=== PATIENT | female | born 1940 | race Caucasian/White ===

== ENCOUNTER 2016-10-16 11:41 | Inpatient (IN) | payer MEDICARE, OTHER ==
[2016-10-16] MEDS ORDERED: Nystatin Topical Powder 15 GM Bottle TOP PRN (17:34)
[2016-10-16] MEDS ORDERED: Non-Formulary Medication 1 Each (Acetaminophen [Acetaminophen Er] 650 MG) PO PRN (17:34)
[2016-10-16] MEDS: Hydrochlorothiazide/Triamterene 25-37.5 MG Cap PO SCH (19:34)
[2016-10-16] MEDS: Simvastatin 10 MG Tab PO SCH (19:35)
[2016-10-16] MEDS: Cholecalciferol (Vitamin D3) 1,000 Unit Tab PO SCH (19:35)
[2016-10-16] MEDS: ELIQUIS 5 MG PO SCH (19:36)
--- NOTE | 2016-10-17 00:46 | HP ---
HISTORY OF PRESENT ILLNESS: Tashia is a 76-year-old female who is admitted to swing bed secondary to recent status post right total knee replacement by Dr. Mike in [place] on the 12 of October. She had a known history of osteoarthritis in her knees and her back. She has been doing quite well since surgery. She states that she does have a little bit of discomfort in her knee, especially with ambulation, otherwise she does see that improving. She has not had any other postsurgical symptoms or concerns. She states otherwise she has been feeling quite well. PAST MEDICAL HISTORY: Chronic illnesses include history of breast cancer, hyperlipidemia, essential hypertension, history of adenomatous colonic polyps, history of osteoarthritis, urinary incontinence, CVA, hypertonicity of bladder, coronary artery disease, history of chronic diastolic heart failure. PAST SURGICAL HISTORY: Includes A and P repair, breast lumpectomy, colonoscopy, excision of , hysterectomy, open reduction of a fracture of the left foot, 5th metatarsal, rotator cuff anchor, tonsillectomy, and adenoidectomy. CURRENT MEDICATIONS: Include metoprolol succinate 25 mg daily; simvastatin 10 mg daily; Maxzide 37.5/25, one tablet daily; anastrozole, Arimidex 1 mg tablet, one tablet daily; aspirin 325 mg one tablet daily; acetaminophen, Tylenol Arthritis 650 mg every 8 hours as needed; calcium 600+D one tablet daily; Nystatin powder apply topically two times daily as needed for rash; multivitamin one tablet daily; Eliquis 2.5 mg b.i.d. x10 days, then will be switched to the aspirin 325 at that point in time, currently the aspirin is being held; oxycodone 5 mg 1-2 tabs every 4 hours as needed; senna/docusate one tablet p.o. b.i.d.; tramadol 50 mg two tabs p.o. p.r.n. every 6 hours as needed. ALLERGIES: NO KNOWN ALLERGIES. SOCIAL HISTORY: , mother of six. She is retired. Former smoker, quit in 1999. Alcohol use is social. No regular exercise. Does wear seat belt. FAMILY HISTORY: Reviewed. PHYSICAL EXAMINATION: VITAL SIGNS: Temp 99.4, pulse of 54, respirations 20, blood pressure 142/56 with O2 saturation 86% on 2 L. She is 91%. GENERAL: Pleasant, cooperative female. She is sleeping comfortably upon examination room. HEENT: Grossly unremarkable. LUNGS: Clear to auscultation. I did not hear any adventitious sounds. Respirations are nonlabored. CARDIAC: Regular rate and rhythm. No murmurs, gallops, or rubs are noted. ABDOMEN: Soft, morbidly obese. Bowel sounds are present and normoactive. No guarding or rigidity. EXTREMITIES: Wound dressing is noted to the right knee. There is some mild edema noted; however, no signs of any secondary cellulitis is noted. Pedal pulses are present and equal bilaterally. ASSESSMENT: STATUS POST RIGHT TOTAL KNEE REPLACEMENT. PLAN: We will admit to Dr. Fulton's service at this time. We will start her again on the Eliquis for 10 days, and at that point in time, we will switch her to aspirin 325 and discontinue the Eliquis. She is to ambulate as tolerated. We will keep her on oxygen at 2 L at sleep, 1 L at rest, and 3 L with activity. She may shower. We will get blood sugar daily as well. She is to elevate her right lower extremity as needed. I did discuss with her if she has any concerns during her stay, she is to definitely let us know; otherwise, Physical Therapy will continue to work with rehabilitation. KINA /[id number] MTDD
[2016-10-17] MEDS: oxyCODONE 5 MG Tab PO PRN ×4 (01:11→20:01)
[2016-10-17] MEDS: Hydrochlorothiazide/Triamterene 25-37.5 MG Cap PO SCH ×2 (08:08→19:44)
[2016-10-17] MEDS: Calcium Carbonate/Vitamin D3 1250 MG-200 Unit Tab PO SCH (08:08)
[2016-10-17] MEDS: ELIQUIS 5 MG PO SCH ×2 (08:11→20:37)
[2016-10-17] MEDS: Metoprolol Succinate 25 MG Tab.ER PO SCH (08:55)
[2016-10-17] MEDS ORDERED: Hydrocortisone Acetate 25 MG Supp RECTAL PRN (09:41)
[2016-10-17] MEDS: traMADol 50 MG Tab PO PRN (16:40)
[2016-10-17] MEDS: Cholecalciferol (Vitamin D3) 1,000 Unit Tab PO SCH (19:44)
[2016-10-17] MEDS: Simvastatin 10 MG Tab PO SCH (19:44)
[2016-10-17] MEDS: Nystatin Topical Powder 15 GM Bottle TOP SCH (20:37)
[2016-10-18] MEDS: oxyCODONE 5 MG Tab PO PRN ×2 (08:03→17:46)
[2016-10-18] MEDS: Hydrochlorothiazide/Triamterene 25-37.5 MG Cap PO SCH ×2 (08:03→19:28)
[2016-10-18] MEDS: Metoprolol Succinate 25 MG Tab.ER PO SCH (08:03)
[2016-10-18] MEDS: Calcium Carbonate/Vitamin D3 1250 MG-200 Unit Tab PO SCH (08:03)
[2016-10-18] MEDS: Nystatin Topical Powder 15 GM Bottle TOP SCH ×2 (08:05→19:30)
[2016-10-18] MEDS: ELIQUIS 5 MG PO SCH ×2 (08:05→19:29)
[2016-10-18] MEDS: [UNRECOGNIZED DRUG - OTHER] PO SCH (13:19)
[2016-10-18] MEDS: Acetaminophen 325 MG Tab PO PRN (19:28)
[2016-10-18] MEDS: Cholecalciferol (Vitamin D3) 1,000 Unit Tab PO SCH (19:29)
[2016-10-18] MEDS: Simvastatin 10 MG Tab PO SCH (19:29)
[2016-10-19] MEDS: Metoprolol Succinate 25 MG Tab.ER PO SCH (07:45)
[2016-10-19] MEDS: Calcium Carbonate/Vitamin D3 1250 MG-200 Unit Tab PO SCH (07:46)
[2016-10-19] MEDS: Hydrochlorothiazide/Triamterene 25-37.5 MG Cap PO SCH ×2 (07:46→20:01)
[2016-10-19] MEDS: ELIQUIS 5 MG PO SCH ×2 (07:47→20:02)
[2016-10-19] MEDS: Nystatin Topical Powder 15 GM Bottle TOP SCH ×2 (07:48→20:02)
[2016-10-19] MEDS: oxyCODONE 5 MG Tab PO PRN (10:23)
[2016-10-19] MEDS: traMADol 50 MG Tab PO PRN (14:25)
[2016-10-19] MEDS: Cholecalciferol (Vitamin D3) 1,000 Unit Tab PO SCH (20:01)
[2016-10-19] MEDS: Simvastatin 10 MG Tab PO SCH (20:02)
[2016-10-19] MEDS: Acetaminophen 325 MG Tab PO PRN (23:40)
[2016-10-20] MEDS: traMADol 50 MG Tab PO PRN (06:11)
[2016-10-20] MEDS: Nystatin Topical Powder 15 GM Bottle TOP SCH ×2 (08:00→19:50)
[2016-10-20] MEDS: Hydrochlorothiazide/Triamterene 25-37.5 MG Cap PO SCH ×2 (08:07→19:48)
[2016-10-20] MEDS: Calcium Carbonate/Vitamin D3 1250 MG-200 Unit Tab PO SCH (08:07)
[2016-10-20] MEDS: ELIQUIS 5 MG PO SCH ×2 (08:08→19:49)
[2016-10-20] MEDS: Metoprolol Succinate 25 MG Tab.ER PO SCH (10:25)
[2016-10-20] MEDS: oxyCODONE 5 MG Tab PO PRN (13:37)
[2016-10-20] MEDS: Simvastatin 10 MG Tab PO SCH (19:48)
[2016-10-20] MEDS: Cholecalciferol (Vitamin D3) 1,000 Unit Tab PO SCH (19:48)
[2016-10-21] MEDS: Metoprolol Succinate 25 MG Tab.ER PO SCH (07:54)
[2016-10-21] MEDS: Calcium Carbonate/Vitamin D3 1250 MG-200 Unit Tab PO SCH (07:54)
[2016-10-21] MEDS: Hydrochlorothiazide/Triamterene 25-37.5 MG Cap PO SCH ×2 (07:54→19:35)
[2016-10-21] MEDS: ELIQUIS 5 MG PO SCH ×2 (07:55→19:36)
[2016-10-21] MEDS: traMADol 50 MG Tab PO PRN (08:00)
[2016-10-21] MEDS: Nystatin Topical Powder 15 GM Bottle TOP SCH ×2 (09:28→19:35)
[2016-10-21] MEDS: oxyCODONE 5 MG Tab PO PRN (14:26)
[2016-10-21] MEDS: Simvastatin 10 MG Tab PO SCH (19:35)
[2016-10-21] MEDS: Cholecalciferol (Vitamin D3) 1,000 Unit Tab PO SCH (19:35)
[2016-10-22] MEDS: ELIQUIS 5 MG PO SCH ×2 (07:30→20:48)
[2016-10-22] MEDS: Metoprolol Succinate 25 MG Tab.ER PO SCH (07:30)
[2016-10-22] MEDS: Hydrochlorothiazide/Triamterene 25-37.5 MG Cap PO SCH ×2 (07:30→20:46)
[2016-10-22] MEDS: Calcium Carbonate/Vitamin D3 1250 MG-200 Unit Tab PO SCH (07:30)
[2016-10-22] MEDS: Nystatin Topical Powder 15 GM Bottle TOP SCH ×2 (09:14→20:48)
[2016-10-22] MEDS: traMADol 50 MG Tab PO PRN ×2 (09:19→20:52)
[2016-10-22 09:30] LABS: CHLORIDE,CL 103 mEq/L (98-106); SODIUM,NA 142 mEq/L (136-145)
[2016-10-22] MEDS: oxyCODONE 5 MG Tab PO PRN (14:51)
[2016-10-22] MEDS: Simvastatin 10 MG Tab PO SCH (20:47)
[2016-10-22] MEDS: Cholecalciferol (Vitamin D3) 1,000 Unit Tab PO SCH (20:47)
[2016-10-23] MEDS: Calcium Carbonate/Vitamin D3 1250 MG-200 Unit Tab PO SCH (07:33)
[2016-10-23] MEDS: Metoprolol Succinate 25 MG Tab.ER PO SCH (07:34)
[2016-10-23] MEDS: Hydrochlorothiazide/Triamterene 25-37.5 MG Cap PO SCH ×2 (07:34→19:05)
[2016-10-23] MEDS: Nystatin Topical Powder 15 GM Bottle TOP SCH ×2 (07:36→19:06)
[2016-10-23] MEDS: ELIQUIS 5 MG PO SCH ×2 (07:36→19:08)
[2016-10-23] MEDS: traMADol 50 MG Tab PO PRN ×2 (09:47→22:49)
[2016-10-23] MEDS: oxyCODONE 5 MG Tab PO PRN (13:52)
[2016-10-23] MEDS: Cholecalciferol (Vitamin D3) 1,000 Unit Tab PO SCH (19:06)
[2016-10-23] MEDS: Simvastatin 10 MG Tab PO SCH (19:07)
[2016-10-24] MEDS: oxyCODONE 5 MG Tab PO PRN (05:46)
[2016-10-24] MEDS: Calcium Carbonate/Vitamin D3 1250 MG-200 Unit Tab PO SCH (07:31)
[2016-10-24] MEDS: Nystatin Topical Powder 15 GM Bottle TOP SCH ×2 (07:32→19:36)
[2016-10-24] MEDS: Metoprolol Succinate 25 MG Tab.ER PO SCH (07:33)
[2016-10-24] MEDS: Hydrochlorothiazide/Triamterene 25-37.5 MG Cap PO SCH ×2 (07:33→19:35)
[2016-10-24] MEDS: ELIQUIS 5 MG PO SCH ×2 (07:34→19:35)
[2016-10-24] MEDS: Acetaminophen 325 MG Tab PO PRN (12:44)
[2016-10-24] MEDS: Simvastatin 10 MG Tab PO SCH (19:34)
[2016-10-24] MEDS: Cholecalciferol (Vitamin D3) 1,000 Unit Tab PO SCH (19:35)
[2016-10-24] MEDS: traMADol 50 MG Tab PO PRN (19:38)
[2016-10-25] MEDS: Acetaminophen 325 MG Tab PO PRN ×2 (00:39→10:05)
[2016-10-25] MEDS: Hydrochlorothiazide/Triamterene 25-37.5 MG Cap PO SCH ×2 (07:31→19:48)
[2016-10-25] MEDS: Aspirin 325 MG Tab.EC PO SCH (07:31)
[2016-10-25] MEDS: Calcium Carbonate/Vitamin D3 1250 MG-200 Unit Tab PO SCH (07:31)
[2016-10-25] MEDS: Metoprolol Succinate 25 MG Tab.ER PO SCH (07:32)
[2016-10-25] MEDS: Nystatin Topical Powder 15 GM Bottle TOP SCH ×2 (07:33→20:30)
[2016-10-25] MEDS: oxyCODONE 5 MG Tab PO PRN ×2 (13:57→19:49)
[2016-10-25] MEDS: Simvastatin 10 MG Tab PO SCH (19:48)
[2016-10-25] MEDS: Cholecalciferol (Vitamin D3) 1,000 Unit Tab PO SCH (19:48)
[2016-10-26] MEDS: Hydrochlorothiazide/Triamterene 25-37.5 MG Cap PO SCH ×2 (07:52→19:53)
[2016-10-26] MEDS: Metoprolol Succinate 25 MG Tab.ER PO SCH (07:52)
[2016-10-26] MEDS: Aspirin 325 MG Tab.EC PO SCH (07:52)
[2016-10-26] MEDS: Calcium Carbonate/Vitamin D3 1250 MG-200 Unit Tab PO SCH (07:52)
[2016-10-26] MEDS: Nystatin Topical Powder 15 GM Bottle TOP SCH ×2 (07:53→19:59)
[2016-10-26] MEDS: oxyCODONE 5 MG Tab PO PRN ×3 (09:05→22:41)
[2016-10-26] MEDS: Simvastatin 10 MG Tab PO SCH (19:53)
[2016-10-26] MEDS: Cholecalciferol (Vitamin D3) 1,000 Unit Tab PO SCH (19:53)
[2016-10-27 07:39] VITALS: BP 145/79
[2016-10-27] MEDS: Aspirin 325 MG Tab.EC PO SCH (07:39)
[2016-10-27] MEDS: Metoprolol Succinate 25 MG Tab.ER PO SCH (07:39)
[2016-10-27] MEDS: Hydrochlorothiazide/Triamterene 25-37.5 MG Cap PO SCH (07:39)
[2016-10-27] MEDS: Calcium Carbonate/Vitamin D3 1250 MG-200 Unit Tab PO SCH (07:39)
[2016-10-27] MEDS: Nystatin Topical Powder 15 GM Bottle TOP SCH (07:40)
[2016-10-27] MEDS: traMADol 50 MG Tab PO PRN (09:05)
--- NOTE | 2016-10-28 19:44 | PCM.DCSUM1 ---
Discharge Summary - Hospital Course Free Text/Narrative:: Patient admitted swing bed after right total knee replacement with Dr. Mike on October 12. Presented for ongoing therapy with PT. Had no surgical complications. Started on Eliquis on admit for 10 days post-op. - Discharge Data Discharge Date: 10/27/16 Discharge Disposition: Home, W Home Health Agency 06 Condition: Good - Discharge Diagnosis/Problem(s) (1) Status post total right knee replacement SNOMED Code(s): 0991004333424 ICD Code: Z96.651 - PRESENCE OF RIGHT ARTIFICIAL KNEE JOINT Status: Acute - Patient Summary/Data Complications: none Consults: Consultations 10/16/16 17:25 PT Evaluation and Treatment [CONS] Routine Hospital Course: Patient has done well during stay. Slow progression of ambulation. Admits not as quick of recovery as when she had her left knee done. Did not tolerate oxycodone well but does have good pain control with Tramadol and tylenol. Patient is now able to ambulate and care for herself in her room. Doing own ADLs. Knee is healing well, incision well approximated. No redness. Does have moderate swelling yet. Will be discharged with home health for ongoing strengthening with PT. Nursing to follow blood pressure, pain control and oxygen sats. Unable to drive due to limited range of motion yet from surgery. Dr. Fulton to monitor home health. - Discharge Plan Prescriptions/Med Rec: traMADol [Ultram] 100 mg PO Q6H PRN #60 tablet PRN Reason: Pain Home Medications: Home Meds Acetaminophen [Acetaminophen ER] 650 mg PO Q8H PRN 05/31/15 [History] Anastrozole 1 mg PO DAILY 05/31/15 [History] Calcium Carbonate/Vitamin D3 [Calcium 600 + Vit D 200] 1 each PO DAILY 05/31/15 [History] Metoprolol Succinate [Toprol XL] 25 mg PO DAILY 05/31/15 [History] Multivitamin [Multi-Vitamin Daily] 1 tab PO DAILY 05/31/15 [History] Nystatin 1 applic MISC BID PRN 05/31/15 [History] Simvastatin [Zocor] 10 mg PO BEDTIME 05/31/15 [History] Triamterene/Hydrochlorothiazid [Triamterene-HCTZ 37.5-25 MG] 1 each PO BID 05/30 [History] Aspirin 325 mg PO DAILY #30 tablet 06/13/15 [Rx] Cholecalciferol (Vitamin D3) [Vitamin D3] 5,000 unit PO BEDTIME 10/16/16 [ History] Gluc Mendez Dipo Ch/Jose Mendez/C/Pérez [Glucosamine Chondroitin Caplet] 1 each PO DAILY 10/16/16 [History] traMADol [Ultram] 100 mg PO Q6H PRN #60 tablet 10/27/16 [Rx] Referrals: [facility] [Outside] (Home Health as directed ) Aamir Mike MD [Ordering Only Provider] - (Dr. Mike on November 10 at [address] pm [address] previously scheduled [address] Jose Bahena as able to discuss post-op hypoxia/pulmonology referral) Jose Bahena MD [Physician] - - Discharge Summary/Plan Comment DC Time >30 min.: No Discharge Summary/Plan Comment: Discharge home with home health. Continue tramadol for pain. Follow up with Dr. Mike as previously planned. Dr. Villela as Needs to schedule pulmonology consult due to post op hypoxia. - General Info Date of Service: 10/27/16 Admission Dx/Problem (Free Text: Right Total Knee Replacement Functional Status: Reports: Pain Controlled, Tolerating Diet, Ambulating - Review of Systems General: Reports: Weakness. Denies: Fever, Fatigue HEENT: Reports: No Symptoms Pulmonary: Denies: Shortness of Breath, Cough Cardiovascular: Reports: Edema. Denies: Chest Pain, Lightheadedness Gastrointestinal: Denies: Abdominal Pain, Nausea, Vomiting Genitourinary: Reports: No Symptoms Musculoskeletal: Reports: Leg Pain, Joint Pain Skin: Reports: Bruising (due to recent surgery) Neurological: Reports: No Symptoms - Patient Data Vitals - Most Recent: Last Vital Signs Temp 98.4 F 10/27/16 08:00 Pulse 69 10/27/16 08:00 Resp 16 10/27/16 08:00 BP 145/79 H 10/27/16 08:00 Pulse Ox 91 L 10/27/16 08:00 Weight - Most Recent: 228 lb 6.4 oz Med Orders - Current: Current Medications Discontinued Medications Acetaminophen (Tylenol) 650 mg PO Q4H PRN PRN Reason: Pain (mild 1-3) Last Admin: 10/25/16 10:05 Dose: 650 mg Aspirin (Ecotrin) 325 mg PO DAILY [facility] Last Admin: 10/27/16 07:39 Dose: 325 mg Calcium Carbonate (Calcium Carbonate/Vitamin D 1250 Mg-200 Unit) 1 tab PO DAILY [facility] Last Admin: 10/27/16 07:39 Dose: 1 tab Cholecalciferol (Vitamin D3) 5,000 units PO BEDTIME [facility] Last Admin: 10/26/16 19:53 Dose: 5,000 units Hydrocortisone Acetate (Anucort-Hc) 25 mg RECTAL BID PRN PRN Reason: Hemorrhoids Last Admin: 10/19/16 09:05 Dose: 25 mg Metoprolol Succinate (Toprol Xl) 25 mg PO DAILY [facility] Last Admin: 10/27/16 07:39 Dose: 25 mg Non-Formulary Medication (Acetaminophen [Acetaminophen Er]) 650 mg PO Q8H PRN PRN Reason: Pain Non-Formulary Medication (Gluc Mendez Dipo Ch/Jose Mendez/C/Pérez [Glucosamine Chondroitin Caplet]) 1 each PO DAILY [facility] Last Admin: 10/18/16 13:19 Dose: Not Given Eliquis 5 Mg Own (Med) 0.5 each PO BID [facility] Stop: 10/24/16 20:01 Last Admin: 10/24/16 19:35 Dose: 0.5 each Nystatin (Nystop) 0 gm TOP BID PRN PRN Reason: Rash Nystatin (Nystop) 0 gm TOP BID [facility] Last Admin: 10/27/16 07:40 Dose: 1 applic Oxycodone HCl (Oxycodone) 5 - 10 mg PO Q4H PRN PRN Reason: Pain Last Admin: 10/26/16 22:41 Dose: 10 mg Senna/Docusate Sodium (Senna Plus) 1 tab PO BID [facility] Last Admin: 10/27/16 07:39 Dose: 1 tab Simvastatin (Zocor) 10 mg PO BEDTIME [facility] Last Admin: 10/26/16 19:53 Dose: 10 mg Tramadol HCl (Ultram) 100 mg PO Q6H PRN PRN Reason: Pain Last Admin: 10/27/16 09:05 Dose: 100 mg Triamterene/HCTZ (Dyazide 25-37.5 Mg) 1 each PO BID [facility] Last Admin: 10/27/16 07:39 Dose: 1 each - Exam General: Reports: Alert, Oriented HEENT: Reports: Mucous Membr. Moist/[place] Neck: Reports: Supple Lungs: Reports: Clear to Auscultation, Normal Respiratory Effort Cardiovascular: Reports: Regular Rate, Regular Rhythm GI/Abdominal Exam: Normal Bowel Sounds, Soft, Non-Tender Extremities: Joint Swelling Wound/Incisions: Reports: Healing Well Neurological: Reports: No New Focal Deficit Psy/Mental Status: Reports: Alert, Normal Affect, Normal Mood *Q Meaningful Use (DIS) - VTE *Q VTE Criteria *Q: - Stroke *Q Stroke Criteria *Q: - AMI *Q AMI Criteria *Q:
== END 2016-10-27 09:45 | disposition home health service (06) | DRG 560 ==
LOC: UNDOADMIN 13:25 → CC.MS 13:25
PROVIDERS: ADMIT Family Medicine; ATTEND Family Medicine
DX: Z47.1 Aftercare following joint replacement surgery (principal); I50.32 Chronic diastolic (congestive) heart failure; Z96.651 Presence of right artificial knee joint; I25.10 Atherosclerotic heart disease of native coronary artery without angina pectoris; I11.0 Hypertensive heart disease with heart failure; E78.5 Hyperlipidemia, unspecified; M47.9 Spondylosis, unspecified; M17.12 Unilateral primary osteoarthritis, left knee; R32 Unspecified urinary incontinence; Z85.3 Personal history of malignant neoplasm of breast; Z86.73 Personal history of transient ischemic attack (TIA), and cerebral infarction without residual deficits; Z87.891 Personal history of nicotine dependence; Z79.82 Long term (current) use of aspirin; Z79.899 Other long term (current) drug therapy
CPT/HCPCS: 36415; 80048; 82962; 85025; 94761; 97110-GP; 97116-GP; 97161-GP; A9270-GY